=== PATIENT | male | born 1975 | race Caucasian/White ===

== ENCOUNTER 2024-03-04 08:52 | Outpatient (CLI) | payer OTHER ==
[2024-03-04 10:39] LABS: #Basophils 0.04 10x3/uL (0.0-0.2); #Eosinphils 0.09 10x3/uL (0.0-0.5); #Monocytes 0.46 10x3/uL (0.0-1.1); #Neutrophils 3.82 10x3/uL (1.5-8.4); %Basophils 0.7 % (0.0-2.0); %Eosinophils 1.6 % (0.0-6.0); %Lymphocytes 23.4 % (18.0-47.0); %Monocytes 7.9 % (0.0-10.0); %Neutrophils 65.9 % (40.0-75.0); Hemoglobin 15.1 g/dL (13.5-17.5); Mean Corpuscular HGB CONC 32.8 g/dL (32.0-36.0); Mean Corpuscular Hemoglobin 30.8 pg (27.0-33.0); Mean Corpuscular Volume 93.7 fL (81.2-95.1); Mean Platelet Volume 10.9 fL (7.4-10.4); Platelet Count 288 10x3/uL (150-450); RBC Distribution Width 12.6 % (11.5-14.5); Red Blood Cell (RBC) Count 4.91 10x6/uL (4.32-5.72); White Blood Cell (WBC) Count 5.8 10x3/uL (3.5-10.5)
[2024-03-04 11:27] LABS: Anion Gap 14 mmol/L (10-20); BUN (Urea Nitrogen) 13 mg/dL (8.9-20.6); Calc. Creatinine Clearance 0 mL/min (70-130); Calcium 9.4 mg/dL (7.8-10.44); Carbon Dioxide 25 mmol/L (22-29); Chloride 107 mmol/L (98-107); Estimated GFR 72; Glucose 104 mg/dL (70-105); Potassium 4.5 mmol/L (3.5-5.1); Sodium 141 mmol/L (136-145)
== END 2024-03-04 08:53 | disposition home or self-care (01) ==
LOC: CSHLAB 08:52
PROVIDERS: ATTEND Specialist
DX: Z01.812 Encounter for preprocedural laboratory examination (principal); K21.9 Gastro-esophageal reflux disease without esophagitis; K42.9 Umbilical hernia without obstruction or gangrene
CPT/HCPCS: 80048; 85025

== ENCOUNTER 2024-03-07 09:50 | Observation (INO) | payer OTHER ==
[2024-03-07] MEDS ORDERED: Ketorolac Tromethamine 30 MG (1 mL) VIAL ONE (10:20)
[2024-03-07] MEDS ORDERED: Acetaminophen 500 MG TAB ONE (10:21)
[2024-03-07] MEDS ORDERED: PROPOFOL 20 ML ONE (12:17)
[2024-03-07] MEDS ORDERED: Lidocaine 1% PF 5 ML VIAL ONE (12:17)
[2024-03-07] MEDS ORDERED: Rocuronium Bromide 10 MG/ML (10ML VIAL) ONE (12:17)
[2024-03-07] MEDS ORDERED: fentaNYL 50 mcg/mL 1 mL Vial ONE ×3 (12:17→16:45)
[2024-03-07] MEDS ORDERED: Bupivacaine/Epinephrine 0.25% 30 ML VIAL ONE (12:23)
[2024-03-07] MEDS ORDERED: CEFAZOLIN 2 GM VIAL ONE (12:46)
[2024-03-07] MEDS ORDERED: ePHEDrine Sulfate 50 MG/10 ML VIAL ONE (13:26)
[2024-03-07] MEDS ORDERED: PHENYLEPHRINE-NS 100 MCG/ML 10 ML SYRINGE ONE (14:01)
[2024-03-07] MEDS ORDERED: SUGAMMADEX SODIUM 200 MG/2 ML VIAL ONE (15:12)
[2024-03-07] MEDS ORDERED: Ondansetron PF 4 MG/2 ML Vial ONE (15:13)
[2024-03-07] MEDS ORDERED: Ipratropium/Albuterol 3 ML NEB NEB PRN (17:23)
[2024-03-07] MEDS ORDERED: Morphine 2 MG/ML VIAL SLOW IVP PRN (17:23)
[2024-03-07] MEDS ORDERED: hydrALAZINE 20 MG/ML VIAL SLOW IVP PRN (17:23)
[2024-03-07] MEDS ORDERED: Morphine 4 MG/ML VIAL SLOW IVP PRN (17:23)
[2024-03-07] MEDS ORDERED: Promethazine HCl 25 MG/ML VIAL IM PRN (17:23)
[2024-03-07] MEDS ORDERED: HYDROcodone/Acetaminophen 7.5/325 mg Tablet PO PRN (17:35)
[2024-03-07 17:37] VITALS: BMI 29.1
[2024-03-07] MEDS: D5 1/2 NS w/20 mEq KCL 1,000 ML IV SCH (18:09)
[2024-03-07] MEDS: Ketorolac Tromethamine 30 MG (1 mL) VIAL IVP SCH (18:10)
[2024-03-07] MEDS: Acetaminophen 325 MG TAB PO SCH (18:10)
[2024-03-07] MEDS: HYDROcodone/Acetaminophen 7.5/325 mg Tablet PO PRN (20:19)
[2024-03-07] MEDS: Famotidine 20 MG TAB PO SCH (20:20)
[2024-03-07] MEDS ORDERED: Famotidine/PF 20 mg/2ml Vial SLOW IVP PRN (21:00)
[2024-03-07] MEDS: Ondansetron PF 4 MG/2 ML Vial IVP PRN (22:44)
[2024-03-08 03:57] LABS: #Basophils 0.04 10x3/uL (0.0-0.2); #Monocytes 0.85 10x3/uL (0.0-1.1); #Neutrophils 10.52 10x3/uL (1.5-8.4); %Basophils 0.3 % (0.0-2.0); %Lymphocytes 8.1 % (18.0-47.0); %Monocytes 6.8 % (0.0-10.0); %Neutrophils 84.4 % (40.0-75.0); Hematocrit 39.1 % (38.8-50.0); Hemoglobin 13.3 g/dL (13.5-17.5); Mean Corpuscular Hemoglobin 31.7 pg (27.0-33.0); Mean Corpuscular Volume 93.1 fL (81.2-95.1); Mean Platelet Volume 10.6 fL (7.4-10.4); Platelet Count 255 10x3/uL (150-450); RBC Distribution Width 12.7 % (11.5-14.5); White Blood Cell (WBC) Count 12.5 10x3/uL (3.5-10.5)
[2024-03-08 03:59] LABS: Anion Gap 14 mmol/L (10-20); BUN (Urea Nitrogen) 12 mg/dL (8.9-20.6); Calc. Creatinine Clearance 104 mL/min (70-130); Calcium 8.4 mg/dL (7.8-10.44); Carbon Dioxide 20 mmol/L (22-29); Chloride 107 mmol/L (98-107); Estimated GFR 89; Glucose 133 mg/dL (70-105); Sodium 137 mmol/L (136-145)
[2024-03-08 08:30] VITALS: TEMP 97.8
[2024-03-08] MEDS: Enoxaparin 40 MG (0.4 mL) SYRINGE SC SCH (08:32)
[2024-03-08] MEDS: Pantoprazole DR 40 MG TAB PO SCH (08:32)
[2024-03-08 14:21] VITALS: BP 148/88
== END 2024-03-08 15:00 | disposition home or self-care (01) ==
LOC: CSHSDC 09:50 → CSHTELE 09:58
PROVIDERS: ADMIT Specialist; ATTEND Specialist
PROC: 0BQT3ZZ Repair Diaphragm, Percutaneous Approach (ICD-10-PCS; principal; 2024-03-08)
PROC: 0WQF0ZZ Repair Abdominal Wall, Open Approach (ICD-10-PCS; 2024-03-08)
DX: K42.9 Umbilical hernia without obstruction or gangrene (principal); K21.9 Gastro-esophageal reflux disease without esophagitis; K44.9 Diaphragmatic hernia without obstruction or gangrene; G43.909 Migraine, unspecified, not intractable, without status migrainosus; Z98.890 Other specified postprocedural states; Z79.899 Other long term (current) drug therapy
CPT/HCPCS: 36415; 80048; 85025; 94760; 94762; A6258; C1781; J1650; J1885; J2405; J2704; J3010; J3480